=== PATIENT | male | born 1950 | race Caucasian/White ===

== ENCOUNTER 2017-01-01 19:11 | Emergency (ER) | payer BC ==
[~2017-01-01] VITALS: Ht 170.2 cm; Wt 58.2 kg
[2017-01-01 19:15] VITALS: TEMP 36.6; Ht 170.2 cm; Wt 58.2 kg
[2017-01-01] MEDS ORDERED: ONDANSETRON INJ 2 MG/ML 2 ML VIAL IV STA (19:36)
[2017-01-01] MEDS ORDERED: SODIUM CHLORIDE 0.9% 1000ML 1,000 ML IV STA ×3 (19:36→23:44)
[2017-01-01] MEDS ORDERED: FENTANYL CITRATE INJ 50 MCG/1 ML 2 ML VIAL IV ONE (19:45)
[2017-01-01] MEDS ORDERED: OPTIRAY 320 IV PRN (20:00)
[2017-01-01 20:14] LABS: BASO % 0.3 %; BASO ABS # 0.03 K/uL (0-0.2); COMPLETE YES; EOS % 0.2 %; HEMATOCRIT 35.4 % (42-52); IG% 0.6 %; LYMPH % 17.9 %; LYMPH ABS # 1.72 K/uL (1.2-3.4); MEAN CELL VOLUME 92.9 fL (80-100); MEAN CORPUSCULAR HEMOGLOBIN 30.4 pg (25-34); MEAN CORPUSCULAR HGB CONC 32.8 g/dl (32-36); MEAN PLATELET VOLUME 8.6 fL (7.4-10.4); MONO % 10.1 %; NEUT % 70.9 %; PLATELET COUNT 987 K/uL (130-400); RED BLOOD COUNT 3.81 M/uL (4.7-6.1); WHITE BLOOD COUNT 9.62 K/uL (4.8-10.8)
--- NOTE | 2017-01-01 20:19 | EMERGENCY ROOM VISIT NOTE ---
History Report prepared by Eva: Travis Marie Under the Supervision of: Dr. Solomon Adams M.D. First contact with patient: 19:19 Chief Complaint: ABDOMINAL PAIN Stated Complaint: EXTREME PAIN IN AREA OF OSTOMY, SWEATS History of Present Illness The patient is a 66 year old white male with a past medical history of appendiceal mucinous carcinomatosis, chemoperfusion abdominal hyperthermic, omentectomy, colon resection, splenectomy, cholecystectomy, appendectomy, and A- fib who presents to the ED with a cc of constant extreme abdominal pain around his ostomy beginning this morning. Positive sweating, increased ostomy output, left kidney pain, and shortness of breath. Negative fever, headache, sore throat , and congestion. Source of History: patient Onset: earlier today Position: abdomen Symptom Intensity: extreme Timing: constant Associated Symptoms: + SOB, No fevers, No headache, No sorethroat Note: Associated symptoms: sweating, increased ostomy output, left kidney pain Review of Systems See HPI for pertinent positives and negatives. A total of ten systems were reviewed and were otherwise negative. Past Medical & Surgical Medical Problems: (1) Appendix carcinoma Surgical Problems: (1) H/O splenectomy (2) History of appendectomy (3) History of colon resection (4) Hx of cholecystectomy Social History Smoking Status: Never Smoker Marital Status: Housing Status: lives with family Occupation Status: employed Current/Historical Medications Scheduled Amiodarone Hcl (Cordarone), 200 MG PO DAILY Pantoprazole (Protonix), 40 MG PO DAILY Wheat Dextrin (Benefiber), 10 ML PO QAM Wheat Dextrin (Benefiber), 5 ML PO QPM Scheduled PRN Oxycodone Immediate Rel Tab (Roxicodone Ir), 5 MG PO Q4H PRN for Pain Allergies Coded Allergies: Penicillins (Verified Allergy, Intermediate, ., 01/02/17) Clarithromycin (Verified Adverse Reaction, Severe, COUGH, 01/01/17) Physical Exam Vital Signs Date Time Temp Pulse Resp B/P (MAP) Pulse Ox O2 Delivery O2 Flow Rate FiO2 01/02/17 00:21 74 18 98/61 96 Room Air 01/02/17 00:09 76 01/01/17 22:28 72 18 109/70 96 Room Air 01/01/17 21:14 71 16 105/65 98 Room Air 01/01/17 20:00 76 01/01/17 19:15 36.6 94 16 95/69 96 Room Air Physical Exam GENERAL: Awake, alert, emaciated appearing, NAD HENT: Dry mucous membranes. Sunken face. Normocephalic, atraumatic. EYES: Normal conjunctiva. Sclera non-icteric. NECK: Supple. No nuchal rigidity. FROM. RESPIRATORY: CTAB, no rhonchi, wheezing, crackles CARDIAC: RRR, no MRG ABDOMEN: Drain in LUQ. Prior well healing incision scar consistent with midline laparotomy. Colostomy in the RLQ with stool. No erythema, calor, or fluctuance. TTP. Healing wound in the LLQ from prior drain with TTP. Suprapubic TTP. Soft, NTND, BS+. No CVA TTP. MSK: No chest wall TTP, no LE edema NEURO: GCS 15, CN 2-12 intact, moves all 4s on command SKIN: No rash or jaundice noted. Medical Decision & Procedures ER Provider Diagnostic Interpretation: Radiology results as stated below per my review and radiologist interpretation: CT SCAN OF THE ABDOMEN AND PELVIS WITH IV CONTRAST CLINICAL HISTORY: Generalized abdominal pain. Reported history of carcinomatosis. COMPARISON STUDY: No priors. TECHNIQUE: Following the IV administration of 93 cc of Optiray 320, CT scan of the abdomen and pelvis is performed from the lung bases to the proximal femora. Images are reviewed in the axial, sagittal, and coronal planes. IV contrast was administered without complication. Automated dose control exposure was utilized. A dose lowering technique was utilized adhering to the principles of ALARA. CT DOSE: 285.09 mGy.cm FINDINGS: Lung bases: The heart is normal in size and without pericardial effusion. There is mild ectasia suggested involving the ascending thoracic aorta which measures up to 4.1 cm. There are small pleural effusions with bibasilar atelectasis. Linear scarring versus atelectasis is seen in the lower lobes. There is no airspace consolidation typical for pneumonia. Segmental and subsegmental pulmonary emboli are identified within branches of the right middle and right lower lobe pulmonary arteries. Liver: The contrast-enhanced liver is normal in size, contour, and attenuation. There is no intrahepatic biliary ductal dilatation. The hepatic veins and portal veins are patent. Gallbladder: Surgically absent. Spleen: The spleen is not identified and presumed surgically absent. Pancreas: Moderately atrophic and grossly unremarkable. Adrenal glands: Unremarkable. Kidneys: The contrast enhanced kidneys are normal in size and without hydronephrosis. The kidneys enhance symmetrically. A 1.7 cm cyst is seen in the upper pole of left kidney. Additional subcentimeter cortical hypodensities also likely represent cysts but are too small for definitive characterization. A retroaortic left renal vein is incidentally noted. Abdominal vasculature: The abdominal aorta is normal in course and caliber noting mild atherosclerotic calcification. Bowel: There are postoperative changes from right hemicolectomy with right lower quadrant ileostomy. Anastomosis is noted in the region of the descending colon, and a mucous fistula is suggested involving the left colon. No bowel obstruction is seen. Peritoneum: There is a midline surgical incision with evidence of previous omentectomy. There is a small volume of abdominal ascites. No intraperitoneal free air is seen. A surgical drain is present in the left upper quadrant below the diaphragm. There is a loculated thick walled gas and fluid containing collection seen more inferiorly in the left upper quadrant adjacent the pancreatic tail and posterior/inferior to the greater curvature of the stomach. This measures approximate 12 x 9 x 5 cm in aggregate dimension. There is a low-attenuation lobulated lesion identified along the posterior aspect of the right hepatic lobe on image #84. This measures approximately 2 x 5 cm. A low-attenuation lesion/collection is also seen posterior to the gastric pylorus on image #152 and measures up to 2.8 cm. There are numerous foci of peritoneal thickening and mild nodularity. A large focus of peritoneal thickening identified along the right posterior abdominal wall inferior to the liver seen on axial image #154. There is minimally complex free fluid in the pelvis. Peritoneal nodules versus fracture coronal nodes are seen in the upper abdomen on axial image #109. The largest is on the right and measures 1.3 cm. Lymphadenopathy: None. Pelvic viscera: The prostate gland is enlarged and heterogeneous noting median lobe hypertrophy. The prostate gland measures 5.0 cm in transverse diameter. The bladder wall is mildly thickened and trabeculated suggesting chronic outlet obstruction. The seminal vesicles are normal as visualized. Skeletal structures: The skeletal structures are osteopenic. Lumbosacral spondylosis is observed. No lytic or blastic lesions are seen. IMPRESSION: 1. Segmental and subsegmental pulmonary emboli are identified and within branches of the right middle and right lower lobe pulmonary arteries. 2. Question ectasia of the ascending thoracic aorta which measures up to 4.1 cm. Correlation with any prior outside imaging studies is recommended. If there are no prior outside imaging studies, follow-up with a nonemergent CT angiogram of the chest could be considered for further assessment. 3. There are postoperative changes from splenectomy, omentectomy, and right colon resection. An ileostomy and probable mucous fistula are present in the right lower quadrant. No bowel obstruction is seen. 4. A surgical drain is seen in the left upper quadrant below the diaphragm. There is a large, thick-walled, gas and fluid containing collection identified in the left upper quadrant below the drain as detailed above. The appearance is nonspecific, and this could represent an abscess, liquefied hematoma, a large pancreatic pseudocyst if there has been a history of pancreatitis, and/or metastatic disease given the history of carcinomatosis. Correlation with clinical findings and any outside imaging studies will be required. 5. There is omental thickening and nodularity consistent with the reported history of carcinomatosis. Aside from the collection mentioned above, the largest low-attenuation lesions are seen posterior to the right lobe of liver and posterior to the gastric pylorus. Additional smaller foci of omental nodularity are noted and discussed above. 6. Small pleural effusions. 7. Additional findings as above. Electronically signed by: Derrick Whitaker M.D. 01/01/2017 10:37 PM Dictated Date/Time: 01/01/2017 10:21 PM Laboratory Results 01/01/17 19:55 Red Blood Count 3.81, Mean Corpuscular Volume 92.9, Mean Corpuscular Hemoglobin 30.4, Mean Corpuscular Hemoglobin Concent 32.8, Mean Platelet Volume 8.6, Neutrophils (%) (Auto) 70.9, Lymphocytes (%) (Auto) 17.9, Monocytes (%) (Auto) 10.1, Eosinophils (%) (Auto) 0.2, Basophils (%) (Auto) 0.3, Neutrophils # (Auto ) 6.82, Lymphocytes # (Auto) 1.72, Monocytes # (Auto) 0.97, Eosinophils # (Auto ) 0.02, Basophils # (Auto) 0.03 01/01/17 19:55 Test 01/01/17 19:55 01/01/17 20:06 01/01/17 22:35 01/02/17 00:48 White Blood Count 9.62 K/uL (4.8-10.8) Red Blood Count 3.81 M/uL (4.7-6.1) Hemoglobin 11.6 g/dL (14.0-18.0) Hematocrit 35.4 % (42-52) Mean Corpuscular Volume 92.9 fL (80-100) Mean Corpuscular Hemoglobin 30.4 pg (25-34) Mean Corpuscular Hemoglobin Concent 32.8 g/dl (32-36) Platelet Count 987 K/uL (130-400) Mean Platelet Volume 8.6 fL (7.4-10.4) Neutrophils (%) (Auto) 70.9 % Lymphocytes (%) (Auto) 17.9 % Monocytes (%) (Auto) 10.1 % Eosinophils (%) (Auto) 0.2 % Basophils (%) (Auto) 0.3 % Neutrophils # (Auto) 6.82 K/uL (1.4-6.5) Lymphocytes # (Auto) 1.72 K/uL (1.2-3.4) Monocytes # (Auto) 0.97 K/uL (0.11-0.59) Eosinophils # (Auto) 0.02 K/uL (0-0.5) Basophils # (Auto) 0.03 K/uL (0-0.2) RDW Standard Deviation 50.4 fL (36.4-46.3) RDW Coefficient of Variation 15.3 % (11.5-14.5) Immature Granulocyte % (Auto) 0.6 % Immature Granulocyte # (Auto) 0.06 K/uL (0.00-0.02) Anion Gap 5.0 mmol/L (3-11) Est Creatinine Clear Calc Drug Dose 54.4 ml/min Estimated GFR () 80.6 Estimated GFR (Non- 69.6 BUN/Creatinine Ratio 15.8 (10-20) Calcium Level 9.3 mg/dl (8.5-10.1) Total Bilirubin 0.2 mg/dl (0.2-1) Direct Bilirubin 0.1 mg/dl (0-0.2) Aspartate Amino Transf (AST/SGOT) 26 U/L (15-37) Alanine Aminotransferase (ALT/SGPT) 64 U/L (12-78) Alkaline Phosphatase 211 U/L (45-117) Total Protein 8.1 gm/dl (6.4-8.2) Albumin 2.5 gm/dl (3.4-5.0) Lipase 565 U/L (73-393) Bedside Lactic Acid Venous 2.02 mmol/L (0.90-1.70) Urine Color YELLOW Urine Appearance CLEAR (CLEAR) Urine pH 6.0 (4.5-7.5) Urine Specific [place] 1.019 (1.000-1.030) Urine Protein NEG (NEG) Urine Glucose (UA) NEG (NEG) Urine Ketones NEG (NEG) Urine Occult Blood NEG (NEG) Urine Nitrite NEG (NEG) Urine Bilirubin NEG (NEG) Urine Urobilinogen NEG (NEG) Urine Leukocyte Esterase NEG (NEG) Laboratory results reviewed by me Medications Administered Medications (Trade) Dose Ordered Sig/Gillian Route Start Time Stop Time Status Last Admin Dose Admin Ondansetron HCl (Zofran Inj) 4 mg NOW STAT IV 01/01/17 19:36 01/01/17 19:40 DC 01/01/17 19:56 4 MG Sodium Chloride 1,000 ml @ 999 mls/hr Q1H1M STAT IV 01/01/17 19:36 01/01/17 20:36 DC 01/01/17 19:56 999 MLS/HR Fentanyl Citrate (Fentanyl Inj) 25 mcg NOW ONCE IV 01/01/17 19:45 01/01/17 19:46 DC 01/01/17 19:57 25 MCG Sodium Chloride 1,000 ml @ 999 mls/hr Q1H1M STAT IV 01/01/17 22:14 01/01/17 23:14 DC 01/01/17 22:27 999 MLS/HR Piperacillin Sod/ Tazobactam Sod (Zosyn Iv) 4.5 gm NOW STAT IV 01/01/17 22:58 01/01/17 22:59 DC 01/01/17 23:36 4.5 GM Vancomycin HCl 1000 mg/Sodium Chloride 270 ml @ 125 mls/hr NOW STAT IV 01/01/17 22:58 01/02/17 01:07 DC 01/02/17 00:19 125 MLS/HR Sodium Chloride 1,000 ml @ 100 mls/hr Q10H STAT IV 01/01/17 23:44 8/19/17 09:43 01/02/17 00:19 100 MLS/HR Heparin Sodium/ Dextrose (Heparin 25,000 Unit/500ml D5W) 25,000 unit STK-MED ONCE .ROUTE 01/02/17 00:34 01/02/17 00:35 DC 01/02/17 00:47 25,000 UNIT Heparin Sodium (Porcine) (Heparin Sq 5000 Unit/0.5ml) 5,000 unit STK-MED ONCE .ROUTE 01/02/17 00:34 01/02/17 00:35 DC 01/02/17 00:45 5,000 UNIT ECG Indication: abdominal pain Rate (beats per minute): 77 Rhythm: normal sinus Findings: other (Normal intervals, normal axis, no STS changes, no TWI) ED Course 1918: The patient was evaluated in room C8. A complete history and physical exam was performed. 2231: I reevaluated the patient, and he states that he is feeling a lot better. 2258: I discussed the patient's case with Dr. Castro, General Surgery, and he suggests the patient get transferred. 0015: I discussed the patient's case with Dr. Mukherjee, [facility], and he is going to accept the patient as a transfer. Medical Decision The patient is a 66 year old white male with a past medical history of appendiceal mucinous carcinomatosis, chemoperfusion abdominal hyperthermic, omentectomy, colon resection, splenectomy, cholecystectomy, appendectomy, and A- fib who presents to the ED with a cc of constant extreme abdominal pain around his ostomy beginning this morning. Positive sweating, increased ostomy output, left kidney pain, and shortness of breath. Negative fever, headache, sore throat , and congestion. Differential Diagnoses include: Increased right gastric/colonic motility, Dehydration, high colonic output, seroma, anemia, abscess. Patient was seen and evaluated at the bedside. Patient did look chronically ill. Patient was evaluated with further blood work as well as CT of the abdomen and pelvis. Patient's blood work did show he had mild hyponatremia and mild elevations in his lipase. Patient's white count was only 6000. Patient's lactate was 2. Patient did receive 2 L of IV abdomen addition to pain and anti- medics. Upon reassessment patient was feeling improved. Patient's CT of the abdomen and pelvis did show his postsurgical changes in addition to 3 separate fluid collections within the abdomen. Given his recent instrumentation and an inability to determine whether or not these were abscesses the patient had blood cultures drawn in addition to IV antibiotics which included vancomycin given his recent instrumentation as well as Zosyn to cover for gram negatives and anaerobes. Patient was informed of the findings. Patient also was noted to have segmental and subsegmental right middle and lower lobe pulmonary emboli. I spoke with the general surgeon here at [facility]. He stated that the patient would be better served at his initial surgical institution as we do not have interventional radiology to drain his fluid collections. A transfer was initiated and I spoke with Dr. Mukherjee at [facility]. I explained situation and the patient was accepted for transfer. He also stated that the patient was okay to have heparin initiated. Heparin was ordered and patient received it. Medication Reconcilliation Current Medication List: was personally reviewed by me Blood Pressure Screening Patient's blood pressure: Low blood pressure Consults Time Called: 225 Consulting Physician: Dr. Castro, General Surgery Returned Call: [phone] I discussed the patient's case with Dr. Castro, General Surgery, and he suggests the patient get transferred. Additional Consults: Time Called: 2300 Consulted Physician: Dr. Mukherjee, [facility] Returned Call: 0015 Additional Comments: I discussed the patient's case with Dr. Mukherjee, [facility], and he is going to accept the patient as a transfer. Impression Primary Impression: Intra-abdominal fluid collection Additional Impressions: Post-op pain Hyponatremia Dehydration Pulmonary emboli Scribe Attestation The scribe's documentation has been prepared under my direction and personally reviewed by me in its entirety. I confirm that the note above accurately reflects all work, treatment, procedures, and medical decision making performed by me. Departure Information Dispostion Transfer Acute Care Facility Patient Instructions My [facility] Problem Qualifiers Additional Impressions: Pulmonary emboli Pulmonary embolism type: other Chronicity: unspecified Acute cor pulmonale presence: without acute cor pulmonale Qualified Codes: I26.99 - Other pulmonary embolism without acute cor pulmonale
[2017-01-01 20:45] LABS: BUN/CREATININE RATIO 15.8 (10-20); CALCIUM 9.3 mg/dl (8.5-10.1); CREATININE 1.1 mg/dl (0.60-1.40); POTASSIUM 4.7 mmol/L (3.5-5.1)
[2017-01-01] MEDS ORDERED: OXYC1TAB3 PO (20:45)
[2017-01-01] MEDS ORDERED: AMIO200T4 PO (20:45)
[2017-01-01] MEDS ORDERED: WHEAPOW13 PO ×2 (20:45)
[2017-01-01] MEDS ORDERED: PANT40TA PO (20:45)
--- NOTE | 2017-01-01 22:38 | DIAGNOSTIC IMAGING REPORT ---
CT SCAN OF THE ABDOMEN AND PELVIS WITH IV CONTRAST CLINICAL HISTORY: Generalized abdominal pain. Reported history of carcinomatosis. COMPARISON STUDY: No priors. TECHNIQUE: Following the IV administration of 93 cc of Optiray 320, CT scan of the abdomen and pelvis is performed from the lung bases to the proximal femora. Images are reviewed in the axial, sagittal, and coronal planes. IV contrast was administered without complication. Automated dose control exposure was utilized. A dose lowering technique was utilized adhering to the principles of ALARA. CT DOSE: 285.09 mGy.cm FINDINGS: Lung bases: The heart is normal in size and without pericardial effusion. There is mild ectasia suggested involving the ascending thoracic aorta which measures up to 4.1 cm. There are small pleural effusions with bibasilar atelectasis. Linear scarring versus atelectasis is seen in the lower lobes. There is no airspace consolidation typical for pneumonia. Segmental and subsegmental pulmonary emboli are identified within branches of the right middle and right lower lobe pulmonary arteries. Liver: The contrast-enhanced liver is normal in size, contour, and attenuation. There is no intrahepatic biliary ductal dilatation. The hepatic veins and portal veins are patent. Gallbladder: Surgically absent. Spleen: The spleen is not identified and presumed surgically absent. Pancreas: Moderately atrophic and grossly unremarkable. Adrenal glands: Unremarkable. Kidneys: The contrast enhanced kidneys are normal in size and without hydronephrosis. The kidneys enhance symmetrically. A 1.7 cm cyst is seen in the upper pole of left kidney. Additional subcentimeter cortical hypodensities also likely represent cysts but are too small for definitive characterization. A retroaortic left renal vein is incidentally noted. Abdominal vasculature: The abdominal aorta is normal in course and caliber noting mild atherosclerotic calcification. Bowel: There are postoperative changes from right hemicolectomy with right lower quadrant ileostomy. Anastomosis is noted in the region of the descending colon, and a mucous fistula is suggested involving the left colon. No bowel obstruction is seen. Peritoneum: There is a midline surgical incision with evidence of previous omentectomy. There is a small volume of abdominal ascites. No intraperitoneal free air is seen. A surgical drain is present in the left upper quadrant below the diaphragm. There is a loculated thick walled gas and fluid containing collection seen more inferiorly in the left upper quadrant adjacent the pancreatic tail and posterior/inferior to the greater curvature of the stomach. This measures approximate 12 x 9 x 5 cm in aggregate dimension. There is a low-attenuation lobulated lesion identified along the posterior aspect of the right hepatic lobe on image #84. This measures approximately 2 x 5 cm. A low-attenuation lesion/collection is also seen posterior to the gastric pylorus on image #152 and measures up to 2.8 cm. There are numerous foci of peritoneal thickening and mild nodularity. A large focus of peritoneal thickening identified along the right posterior abdominal wall inferior to the liver seen on axial image #154. There is minimally complex free fluid in the pelvis. Peritoneal nodules versus fracture coronal nodes are seen in the upper abdomen on axial image #109. The largest is on the right and measures 1.3 cm. Lymphadenopathy: None. Pelvic viscera: The prostate gland is enlarged and heterogeneous noting median lobe hypertrophy. The prostate gland measures 5.0 cm in transverse diameter. The bladder wall is mildly thickened and trabeculated suggesting chronic outlet obstruction. The seminal vesicles are normal as visualized. Skeletal structures: The skeletal structures are osteopenic. Lumbosacral spondylosis is observed. No lytic or blastic lesions are seen. IMPRESSION: 1. Segmental and subsegmental pulmonary emboli are identified and within branches of the right middle and right lower lobe pulmonary arteries. 2. Question ectasia of the ascending thoracic aorta which measures up to 4.1 cm. Correlation with any prior outside imaging studies is recommended. If there are no prior outside imaging studies, follow-up with a nonemergent CT angiogram of the chest could be considered for further assessment. 3. There are postoperative changes from splenectomy, omentectomy, and right colon resection. An ileostomy and probable mucous fistula are present in the right lower quadrant. No bowel obstruction is seen. 4. A surgical drain is seen in the left upper quadrant below the diaphragm. There is a large, thick-walled, gas and fluid containing collection identified in the left upper quadrant below the drain as detailed above. The appearance is nonspecific, and this could represent an abscess, liquefied hematoma, a large pancreatic pseudocyst if there has been a history of pancreatitis, and/or metastatic disease given the history of carcinomatosis. Correlation with clinical findings and any outside imaging studies will be required. 5. There is omental thickening and nodularity consistent with the reported history of carcinomatosis. Aside from the collection mentioned above, the largest low-attenuation lesions are seen posterior to the right lobe of liver and posterior to the gastric pylorus. Additional smaller foci of omental nodularity are noted and discussed above. 6. Small pleural effusions. 7. Additional findings as above. Electronically signed by: Derrick Whitaker M.D. 01/01/2017 10:37 PM Dictated Date/Time: 01/01/2017 10:21 PM
[2017-01-01 22:51] LABS: URINE APPEARANCE CLEAR (CLEAR); URINE BILIRUBIN NEG (NEG); URINE COLOR YELLOW; URINE NITRITE NEG (NEG); URINE SPECIFIC GRAVITY 1.019 (1.000-1.030); UROBILINOGEN NEG (NEG); ZZUR CULT IF INDIC CLEAN CATCH NO
[2017-01-01 22:52] LABS: MANUAL MICROSCOPIC REQUIRED? NO; REVIEW REQ? NO
[2017-01-01] MEDS ORDERED: PIPERACILLIN/TAZOBACTAM 4.5 GM/100ML D5W IV STA (22:58)
[2017-01-01] MEDS ORDERED: VANCOMYCIN INJ 1,000 MG in SODIUM CHLORIDE 0.9% 250ML 250 ML IV STA (22:58)
[2017-01-02] MEDS ORDERED: HEPARIN SOD 5000 UNIT/0.5 ML CARP ONE (00:34)
[2017-01-02] MEDS ORDERED: HEPARIN 25000 UNIT/500 ML D5W ONE (00:34)
[2017-01-02 01:54] LABS: PARTIAL THROMBOPLASTIN RATIO 1.2; PROTHROMBIN TIME (PATIENT) 10.5 SECONDS (9.0-12.0)
[2017-01-02 02:09] VITALS: BP 100/68; PULSE 79; O2SAT 98
== END 2017-01-02 02:10 | disposition short-term general hospital (02) ==
LOC: C.EDB 19:12 → C.EDC 01-02 02:10
DX: R18.8 Other ascites (principal); G89.18 Other acute postprocedural pain; E87.1 Hypo-osmolality and hyponatremia; E86.0 Dehydration; I26.99 Other pulmonary embolism without acute cor pulmonale; R10.9 Unspecified abdominal pain; R06.02 Shortness of breath; I48.91 Unspecified atrial fibrillation; Z79.899 Other long term (current) drug therapy; Z93.3 Colostomy status; Z85.89 Personal history of malignant neoplasm of other organs and systems